=== PATIENT | male | born 1935 | race Caucasian/White ===

== ENCOUNTER → 2018-09-29 | Outpatient (CLI) | payer MEDICARE, OTHER ==
[~2018-09-29] MED LIST: ALLO300T2 PO; AMLO5TAB9 PO; CLOP75TA32 PO; CQ10 PO; DESO515C TP; MANGOSTEEN PO; MULTIVITAMIN PO; PRAV10TA39 PO; SILDENAFIL CITRATE PO
== END | disposition home or self-care (01) ==
LOC: OIH 13:04
PROVIDERS: ATTEND Internal Medicine
DX: M51.36 Other intervertebral disc degeneration, lumbar region (principal); M47.816 Spondylosis without myelopathy or radiculopathy, lumbar region; M25.78 Osteophyte, vertebrae
CPT/HCPCS: 72100